=== PATIENT | female | born 1945 | race Caucasian/White ===

== ENCOUNTER 2017-02-04 04:02 | Inpatient (IN) | payer MEDICARE, OTHER ==
[~2017-02-04] VITALS: Ht 160 cm; Wt 99.8 kg
[2017-02-04] VITALS (8 sets, daily range): BP systolic 90–148; BP diastolic 60–93
[2017-02-04] MEDS ORDERED: Dicyclomine HCl 10mg/5ml oral soln ORAL ONE (04:15)
[2017-02-04 05:01] LABS: BASOPHILS % (AUTO) 1.2 % (0.0-2.0); EOSINOPHILS % (AUTO) 0.7 % (0.0-3.0); LYMPHOCYTES % (AUTO) 29.4 % (20.0-45.0); MEAN CORPUSCULAR HEMOGLOBIN 28.5 PG (27.0-31.0); MEAN CORPUSCULAR HGB CONC 32.9 G/DL (32.0-36.0); MEAN CORPUSCULAR VOLUME 86 FL (80-99); MEAN PLATELET VOLUME 7.5 FL (6.5-10.1); MONOCYTES % (AUTO) 4.8 % (1.0-10.0); PLATELET COUNT 238 K/UL (150-450); RED BLOOD COUNT 5.13 M/UL (4.20-5.40); RED CELL DISTRIBUTION WIDTH 12.2 % (11.6-14.8); WHITE BLOOD COUNT 9.8 K/UL (4.8-10.8)
[2017-02-04 05:17] LABS: ALBUMIN/GLOBULIN RATIO 1.5 (1.0-2.7); CALCIUM 9.8 mg/dL (8.6-10.2); CREATININE 1.3 mg/dL (0.5-0.9); GLOMERULAR FILTRATION RATE 40.6 mL/min (>60); POTASSIUM 3.8 mEQ/L (3.4-4.9); TROPONIN I < 0.30 ng/mL (<=0.30)
[2017-02-04 05:18] LABS: PROTHROMBIN TIME 10.7 SEC (9.30-11.50)
[2017-02-04] MEDS ORDERED: Aspirin Baby 81mg ORAL ONE (05:30)
[2017-02-04 06:29] LABS: APPEARANCE,URINE CLEAR; KETONES,URINE 3+ (NEGATIVE); LEUKOCYTE ESTERASE ,URINE 1+ (NEGATIVE); NITRITE,URINE NEGATIVE (NEGATIVE); PH,URINE 5 (4.5-8.0); PROTEIN,URINE NEGATIVE (NEGATIVE); UROBILINOGEN,URINE 1 MG/DL (0.0-1.0)
--- NOTE | 2017-02-04 06:48 | Emergency Room Report ---
History of Present Illness General Chief Complaint: General Complaint Source: Patient, EMS Present Illness HPI Patient is a 71-year-old female who presented after increased abdominal pain chest pain. The patient is brought in by EMS. She was noted to have have been staying at her apartment which appear to be markedly had disorganized and was having difficulty caring for herself. She was noted to have been calling for help and the neighbor called EMS. The patient was having difficulty transferring in her wheelchair. Patient prior history of diabetes as well as hypertension. She reportedly takes multiple medications but does not know the names of any of her medications. She reported having some chest pain which did not radiate. She also reported having some pain to her right leg. Which is worse with movement. Allergies: Coded Allergies: SULFA (SULFONAMIDE ANTIBIOTICS) (Verified Allergy, Unknown, 02/04/17) Patient History Past Medical History: see triage record Reviewed Nursing Documentation: PMH: Agreed, PSxH: Agreed Nursing Documentation-PMH Past Medical History: No History, Except For Hx Hypertension: Yes Hx Diabetes: Yes Review of Systems All Other Systems: negative except mentioned in HPI Physical Exam Vital Signs Date Time Temp Pulse Resp B/P Pulse Ox O2 Delivery O2 Flow Rate FiO2 02/04/17 03:54 97.9 93 16 125/91 99 Room Air Sp02 EP Interpretation: reviewed, normal General Appearance: normal inspection, well appearing, no apparent distress, alert, GCS 15 Head: atraumatic ENT: normal ENT inspection, hearing grossly normal, normal voice Neck: normal inspection, full range of motion, supple, no bony tend Respiratory: normal inspection, lungs clear, normal breath sounds, no respiratory distress, no retraction, no wheezing Cardiovascular #1: regular rate, rhythm, no edema Gastrointestinal: normal inspection, normal bowel sounds, non tender, soft, no guarding, no hernia Genitourinary: no CVA tenderness Musculoskeletal: normal inspection, back normal, normal range of motion Neurologic: normal inspection, alert, oriented x3, responsive, speech normal, motor weakness - lower extremities Psychiatric: normal inspection, mood/affect normal Skin: normal inspection, normal color, no rash Medical Decision Making Diagnostic Impression: Primary Impression: Chest pain Additional Impressions: Dehydration ACS (acute coronary syndrome) ER Course Patient presented for abdominal pain. Differential diagnoses included ischemic bowel, appendicitis, perforated viscus, abdominal aortic aneurysm, inferior myocardial infarction, viral gastroenteritis Because of complexity of patient's case laboratory testing and imaging studies were ordered. EKG interpreted by me showed normal sinus rhythm with a rate of 84 with a right bundle-branch block there are no acute ST or T wave changes noted. Patient was noted to have prolonged QTC 484. Patient was given Zyprexa for agitation. CT imaging of the abdomen pelvis read by radiology showed status post cholecystectomy without significant bile duct dilation diverticulosis granulomatous disease.Dr. Narinder Mckeon was contacted for inpatient management for further evaluation of chest pain. Last Vital Signs Date Time Temp Pulse Resp B/P Pulse Ox O2 Delivery O2 Flow Rate FiO2 02/04/17 05:17 76 14 138/77 97 Room Air 02/04/17 03:54 97.9 Status: unchanged Disposition: ADMITTED INPATIENT Condition: Stable Referrals: NON PHYSICIAN (PCP) Navi Friedman Feb 04, 2017 06:48
[2017-02-04 06:52] LABS: BACTERIA,URINE FEW /HPF; MUCUS,URINE FEW /LPF (NONE/OCC); RBC,URINE 0-2 /HPF (0 - 2); SQUAMOUS EPITHELIAL CELL,UR FEW /LPF (NONE/OCC)
[2017-02-04 09:33] LABS: TROPONIN I < 0.30 ng/mL (<=0.30)
--- NOTE | 2017-02-04 09:49 | Diagnostic Imaging Report ---
Clinical Indication: Right-sided pain Technique: No oral contrast utilized, per emergency room physician request IV administration nonionic contrast. Venous phase spiral acquisition obtained through the abdomen and pelvis. Multiplanar reconstructions were generated. Total dose length product 983 mGycm. CTDIvol(s) 17 mGy. Dose reduction achieved using automated exposure control Comparison: None Findings: There is a slight degree of image degradation due to respiratory motion artifact. What is probably a normal appendix is demonstrated. There are scattered colonic diverticula. No evidence of diverticulitis. Small bowel loops are mildly fluid-filled, nondistended. No free or loculated intraperitoneal air or fluid is evident. Distal esophagus, stomach, duodenum are unremarkable. There is a small midline upper abdominal ventral hernia which contain only fat The gallbladder is surgically absent. There is ectasia of the extrahepatic bile ducts, common bile duct measuring up to 10 mm diameter. No definite downstream obstructing lesion is evident. The, pancreas, spleen, adrenals, are unremarkable. There is equivocal very slight asymmetry to the bilateral nephrograms, right kidney questionably opacifying minimally less than the right. No retroperitoneal or mesenteric mass or adenopathy. No pelvic mass or adenopathy. The included lung bases demonstrate some dependent atelectatic changes and a calcified granuloma. The bones demonstrate degenerative spondylosis changes. Impression: Equivocal slight nephrographic asymmetry, of doubtful significance but if real could indicate right-sided pyelonephritis. Correlate with clinical findings No acute abnormality otherwise Diverticulosis. No evidence of diverticulitis. Surgically absent gallbladder. Mild extra hepatic biliary ductal ectasia, probably related to age and postcholecystectomy state. Correlation with liver function tests is recommended. Old granulomatous disease of the left lung base. Minimal left basilar atelectasis Incidental finding degenerative spondylosis, small upper abdominal midline ventral hernia containing only fat This agrees with the preliminary interpretation provided overnight by [facility] teleradiology service. The CT scanner at [facility] is accredited by the [employer] and the scans are performed using protocols designed to limit radiation exposure to as low as reasonably achievable to attain images of sufficient resolution adequate for diagnostic evaluation.
[2017-02-04] MEDS: Pantoprazole Inj IV SCH (10:09)
[2017-02-04] MEDS: Heparin 5000 units/ml inj SUBQ SCH ×2 (10:13→20:32)
[2017-02-04] MEDS: Morphine Sulfate 4mg/ml Inj IVP PRN ×2 (12:02→17:36)
--- NOTE | 2017-02-04 12:06 | History & Physical ---
History and Physical History & Physicial H&P dictated [id number] ANUPAM PETERSON M.D. Feb 04, 2017 12:06
[2017-02-04 13:13] LABS: THYROID STIMULATING HORMONE 0.979 uIU/mL (0.300-4.500)
--- NOTE | 2017-02-04 13:30 | Cardiology Report ---
APPROVED REPORT EKG Measurement Heart [id number] Normal sinus rhythm Right bundle branch block Abnormal ECG
--- NOTE | 2017-02-04 13:30 | Diagnostic Imaging Report ---
Indications: PAIN Technique: Two views of the right femur Comparison: None Findings: No acute fractures. No dislocations. There is a right knee prosthesis Impression: No acute bony trauma This agrees with the preliminary interpretation provided by the referring physician
[2017-02-04] MEDS: Morphine Sulfate 2mg/ml Inj IVP PRN (20:24)
--- NOTE | 2017-02-04 20:26 | Cardiology Progress Note ---
Assessment/Plan Assessment/Plan ekg unchanged since 2012 all trop neg cp seem to be reproducible on palpation of chest wall check echo repeat ekg adn trop if all remain neg will not pursuit further gramajo as inpt [id number] Objective Last 24 Hour Vital Signs Date Time Temp Pulse Resp B/P Pulse Ox O2 Delivery O2 Flow Rate FiO2 02/04/17 16:26 97.5 82 18 144/74 99 Room Air 02/04/17 16:00 89 02/04/17 12:00 97.4 75 18 117/64 97 Room Air 02/04/17 08:42 82 02/04/17 08:30 97.0 77 18 113/60 97 Room Air 02/04/17 07:49 82 16 118/75 100 Room Air 02/04/17 07:30 82 16 90/66 100 Room Air 02/04/17 06:44 97.2 84 19 147/69 98 02/04/17 05:17 76 14 138/77 97 Room Air 02/04/17 05:00 87 15 148/93 95 Room Air 02/04/17 03:54 97.9 93 16 125/91 99 Room Air Intake and Output 02/03/17 02/04/17 19:00 07:00 Intake Total 100 ml Output Total 250 ml Balance -150 ml Intake Oral 100 ml Output Urine Total 250 ml Laboratory Tests Test 02/04/17 04:40 02/04/17 06:10 02/04/17 09:00 02/04/17 12:30 White Blood Count 9.8 K/UL (4.8-10.8) Red Blood Count 5.13 M/UL (4.20-5.40) Hemoglobin 14.6 G/DL (12.0-16.0) Hematocrit 44.3 % (37.0-47.0) Mean Corpuscular Volume 86 FL (80-99) Mean Corpuscular Hemoglobin 28.5 PG (27.0-31.0) Mean Corpuscular Hemoglobin Concent 32.9 G/DL (32.0-36.0) Red Cell Distribution Width 12.2 % (11.6-14.8) Platelet Count 238 K/UL (150-450) Mean Platelet Volume 7.5 FL (6.5-10.1) Neutrophils (%) (Auto) 64.0 % (45.0-75.0) Lymphocytes (%) (Auto) 29.4 % (20.0-45.0) Monocytes (%) (Auto) 4.8 % (1.0-10.0) Eosinophils (%) (Auto) 0.7 % (0.0-3.0) Basophils (%) (Auto) 1.2 % (0.0-2.0) Prothrombin Time 10.7 SEC (9.30-11.50) Prothromb Time International Ratio 1.0 (0.9-1.1) Activated Partial Thromboplast Time 24 SEC (23-33) Sodium Level 138 mEQ/L (135-145) Potassium Level 3.8 mEQ/L (3.4-4.9) Chloride Level 96 mEQ/L (98-107) L Carbon Dioxide Level 26 mEQ/L (20-30) Anion Gap 16 (5-15) H Blood Urea Nitrogen 23 mg/dL (7-23) Creatinine 1.3 mg/dL (0.5-0.9) H Estimat Glomerular Filtration Rate 40.6 mL/min (>60) Glucose Level 162 mg/dL (74-106) H Calcium Level 9.8 mg/dL (8.6-10.2) Total Bilirubin 0.9 mg/dL (0.0-1.2) Aspartate Amino Transf (AST/SGOT) 16 U/L (5-40) Alanine Aminotransferase (ALT/SGPT) 19 U/L (3-33) Alkaline Phosphatase 77 U/L (35-104) Troponin I < 0.30 ng/mL (<=0.30) < 0.30 ng/mL (<=0.30) Total Protein 7.0 g/dL (6.6-8.7) Albumin 4.3 g/dL (3.5-5.2) Globulin 2.7 g/dL Albumin/Globulin Ratio 1.5 (1.0-2.7) Urine Color Yellow Urine Appearance Clear Urine pH 5 (4.5-8.0) Urine Specific North 1.015 (1.005-1.035) Urine Protein Negative (NEGATIVE) Urine Glucose (UA) Negative (NEGATIVE) Urine Ketones 3+ (NEGATIVE) H Urine Occult Blood Negative (NEGATIVE) Urine Nitrite Negative (NEGATIVE) Urine Bilirubin Negative (NEGATIVE) Urine Urobilinogen 1 MG/DL (0.0-1.0) H Urine Leukocyte Esterase 1+ (NEGATIVE) H Urine RBC 0-2 /HPF (0 - 2) Urine WBC 2-4 /HPF (0 - 2) Urine Squamous Epithelial Cells Few /LPF (NONE/OCC) Urine Bacteria Few /HPF (NONE) Urine Mucus Few /LPF (NONE/OCC) H Vitamin B12 Level 539 pg/mL (211-946) Thyroid Stimulating Hormone (TSH) 0.979 uIU/mL (0.300-4.500) Folate Pending Rapid Plasma Reagin Pending NICOLE PETE Feb 04, 2017 20:26
[2017-02-04] MEDS: NovoLOG Insulin Flexpen SUBQ SCH (21:10)
--- NOTE | 2017-02-04 22:01 | History and Physical Report ---
DATE OF ADMISSION: 02/04/2017 HISTORY OF PRESENT ILLNESS: This is a 71-year-old female, who is homeless and presents to the hospital for left-sided chest pain. She has come to the emergency room and informed that she was inside her apartment a few steps and fell by holding onto the wheelchair. She reports left-sided chest pain at this time. She has a history of hypertension, diabetes, chronic pain, and angina. She denies any shortness of breath. She states that her chest pain radiates to her left neck and is sharp in nature. She denies any alleviating or aggravating factors. She had abdominal pain yesterday. She denies any nausea or vomiting. The patient is very disorganized and confused. She does not remember many details. She does not know the name of the medications that she is taking. PAST MEDICAL HISTORY: Includes angina, diabetes, hypertension, and chronic pain. PAST SURGICAL HISTORY: None. MEDICATIONS: Reviewed in [email or web address]. ALLERGIES: Sulfa. REVIEW OF SYSTEMS: A 12-point of review of systems is unobtainable because of the patient's mental status. PHYSICAL EXAMINATION: VITAL SIGNS: Temperature 97.9 degrees, pulse is 93, respiratory rate is 15, blood pressure 125/91, and O2 saturation is 99% on room air. GENERAL: No acute distress. The patient is alert, awake, and oriented times person only. HEENT: Normocephalic/atraumatic. NECK: Supple. No JVD. LUNGS: Clear to auscultation bilaterally. No crackles, rhonchi, or rales. CARDIOVASCULAR: Regular rate and rhythm. Normal S1 and S2. ABDOMEN: Soft, nontender, and nondistended. EXTREMITIES: No clubbing, cyanosis, or edema. SKIN: Normal inspection. No rashes. NEURO: The patient is awake and alert to person. PSYCH: The patient is very anxious and confused. DIAGNOSTIC DATA: EKG shows right bundle-branch block. LABORATORY DATA: CBC, white count of 9.8, hemoglobin 14.6, and platelet count 238,000. BMP, sodium 138, potassium 3.8, chloride 96, CO2 26, BUN 23, and creatinine 1.3. Troponin is less than 0.[address] abdomen and pelvis shows diverticulosis, surgically absent gallbladder, old granulomatous disease of left lung base, degenerative spondylosis, and abdominal midline ventral hernia containing fat. ASSESSMENT: 1. Left-sided chest pain. 2. History of diabetes. 3. Hypertension. 4. The patient is confused concerning for dementia. PLAN: 1. Can transfer her to telemetry. 2. Cardiac monitoring. 3. Cardiology consult with Dr. Escobar 4. Aspirin and pravastatin. 5. PPI. 6. Metabolic workup for confusion including a TSH, RPR, and calcium. 7. rice farmworker consult. 8. PT evaluation. 9. I am concerned that the patient is not safe at home given her significant weakness. 10. DVT prophylaxis with heparin. Narinder Mckeon MD DR: GRACIE JOB#: [id number] CC:
[2017-02-05] VITALS: BP 140/80
[2017-02-05] MEDS: Morphine Sulfate 2mg/ml Inj IVP PRN ×2 (00:59→09:37)
[2017-02-05 04:00] VITALS: BP 142/76
--- NOTE | 2017-02-05 06:15 | Consultation ---
DATE OF CONSULTATION: 02/04/2017 CARDIOLOGY CONSULTATION REFERRING PHYSICIAN: Narinder Mckeon M.D. REASON FOR REFERRAL: Chest pain. HISTORY OF PRESENT ILLNESS: This is an elderly female, who is rather a poor historian. She is 71 years old and she has several medical problems that the patient's reason for admission is rather vague. She tells me that the she felt anxious and she was throwing things out of her apartment and was trying to get out and she was unable to get a hold of her daughter. She was trying to cut down the lock and eventual. Nicolas Escobar M.D. DR: JOSEPH JOB#: [id number] CC:
[2017-02-05] MEDS: NovoLOG Insulin Flexpen SUBQ SCH ×5 (06:37→20:23)
[2017-02-05 07:49] LABS: BASOPHILS % (AUTO) 1.6 % (0.0-2.0); LYMPHOCYTES % (AUTO) 39.4 % (20.0-45.0); MEAN CORPUSCULAR HEMOGLOBIN 29.1 PG (27.0-31.0); MEAN CORPUSCULAR HGB CONC 33.2 G/DL (32.0-36.0); MEAN CORPUSCULAR VOLUME 88 FL (80-99); MEAN PLATELET VOLUME 7.8 FL (6.5-10.1); MONOCYTES % (AUTO) 4.9 % (1.0-10.0); NEUTROPHILS % (AUTO) 52.1 % (45.0-75.0); PLATELET COUNT 222 K/UL (150-450); RED BLOOD COUNT 5.11 M/UL (4.20-5.40); RED CELL DISTRIBUTION WIDTH 12.5 % (11.6-14.8)
[2017-02-05 07:51] LABS: ANION GAP 13 (5-15); CARBON DIOXIDE 29 mEQ/L (20-30); CHLORIDE 99 mEQ/L (98-107); CREATININE 0.9 mg/dL (0.5-0.9); GLOMERULAR FILTRATION RATE > 60 mL/min (>60); HEMOLYSIS 5; POTASSIUM 3.9 mEQ/L (3.4-4.9); SODIUM 141 mEQ/L (135-145)
[2017-02-05 08:00] VITALS: BP 118/74
[2017-02-05 08:08] LABS: TROPONIN I < 0.30 ng/mL (<=0.30)
--- NOTE | 2017-02-05 08:15 | Consultation ---
DATE OF CONSULTATION: 02/04/2017 CARDIOLOGY CONSULTATION CONSULTING PHYSICIAN: Nicolas Escobar M.D. REFERRING PHYSICIAN: Narinder Mckeon M.D. REASON FOR REFERRAL: Possible chest pain. HISTORY OF PRESENT ILLNESS: This is a 71-year-old female who is usually followed by Dr. Shubham Fernandez. The patient has a very convoluted history and very difficult to obtain. Apparently, in the complex where she was living, she was trying to get out. She was having several symptoms and very difficult to ascertain exactly the nature of the symptoms. She was trying to jump out or try to break down the lock and going to step out of the apartment. She says nevertheless she had somebody to call the paramedics. and the patient was transferred to the emergency room at [facility]. There have been some episodes of chest pain, which she says she has had off and on for 22 years and it is difficult for her to describe her pain, but seems to be sharp in nature, but lasts anywhere between a few seconds to few minutes. She does not seem to be have any relieving or exacerbating factors being noted or documented by the patient. She states Dr. Fernandez has been aware of these. She has shortness of breath. She has palpitations. She has dizziness on standing. She has shortness of breath on laying down and shortness of breath on activity. 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 ALLERGIES: She is allergic to sulfa. SOCIAL HISTORY: She does not smoke. Does not drink alcohol beverages. She lives in an apartment complex. Her daughter apparently assists in her care, although she seems to have been moved to [place]. REVIEW OF SYSTEMS: HEENT: Boggy turbinates. Gastrointestinal: She does not eat she says. She does not cook. She is constipated. She does not eat enough to cook. There is no bloody or black stools, but she has improved. Genitourinary: No burning on urination at this time, but she has had that before. Pulmonary: Occasional cough. Constitutional: Occasional fevers, chills, and night sweats. Neurologic: Negative. PHYSICAL EXAMINATION: GENERAL: Shows to be anxious appearing, middle-aged female, in no respiratory distress. NECK: Supple. No jugular venous distention. LUNGS: Clear to auscultation and percussion. CARDIAC: S1 is normal. S2 is normal. Regular rate and rhythm. No heaves, thrills, or gallops noted. ABDOMEN: Soft and obese. Positive bowel sounds. EXTREMITIES: There is no clubbing, cyanosis, or edema. NEUROLOGIC: She is awake, alert, responsive, and in no apparent respiratory distress. LABORATORY DATA: White count of 9.2, hemoglobin 14.2, and platelets 238,000. Sodium is 130, potassium 3.8, chloride 96, bicarbonate 26, BUN 22, creatinine 1.2, and glucose of 162. Two sets of cardiac enzymes are negative. B12 of 539. TSH of 0.979. INR is 1.2 and PTT of 26. Urinalysis is fairly unremarkable. IMAGING STUDIES: CT of the abdomen shows normal appendix actually improved with slight nephrographic asymmetry of doubtful significant diverticulosis, surgically absent gallbladder, intrahepatic biliary ductal ectasia, probably related to age and post cholecystectomy, old granulomatous disease of the left lung, minimal left atelectasis, incident finding of spondylosis and the patient's electrocardiogram shows right bundle-branch conduction defect. No significant ST-T wave abnormalities. Compared to prior EKG back in 2013 at [facility] are fairly unremarkable. ASSESSMENT: 1. Atypical chest pain. 2. Diabetes. 3. Hyperlipidemia. 4. Hypertension. 5. Anxiety. PLAN: Dr. Mckeon, this patient was seen in cardiac consultation. There are no intracardiac abnormalities on this EKG. I am not even sure not sure if she actually had some chest pain. Her chest wall is tender to palpation and reproduces the patient's pain. It is likely that this may be musculoskeletal if the pain was present either. The patient should undergo echocardiography if the echocardiogram is unremarkable and cardiac enzymes and repeat EKGs are unremarkable I may not pursue any further. Nicolas Escobar M.D. DR: JEAN MARIE JOB#: [id number] CC:
[2017-02-05] MEDS: Pantoprazole Inj IV SCH (08:51)
[2017-02-05] MEDS: Heparin 5000 units/ml inj SUBQ SCH ×2 (08:52→20:22)
[2017-02-05 12:00] VITALS: BP 144/84
--- NOTE | 2017-02-05 13:23 | Internal Med Progress Note ---
Subjective Physician Name Narinder Peterson Attending Physician Narinder Peterson M.D. Current Medications Medications (Trade) Dose Ordered Sig/[place] Route PRN Reason Start Time Stop Time Status Last Admin Dose Admin Acetaminophen (Tylenol) 650 mg Q4H PRN ORAL Mild Pain (Pain Scale 1-3) 02/04/17 07:15 03/06/17 07:14 Dextrose STAT PRN IV Hypoglycemia 02/04/17 07:15 03/06/17 07:14 Heparin Sodium (Porcine) (Heparin 5000 units/ml) 5,000 units EVERY 12 HOURS SUBQ 02/04/17 09:00 03/06/17 08:59 02/05/17 08:52 Insulin Aspart (NovoLOG) BEFORE MEALS AND HS SUBQ 02/04/17 21:00 03/06/17 20:59 02/05/17 06:37 Morphine Sulfate (Morphine Sulfate) 2 mg Q4H PRN IVP Moderate Pain (Pain Scale 4-6) 02/04/17 07:15 02/11/17 07:14 02/05/17 09:37 Morphine Sulfate (Morphine Sulfate) 4 mg Q4H PRN IVP Severe Pain (Pain Scale 7-10) 02/04/17 07:15 02/11/17 07:14 02/04/17 17:36 Ondansetron HCl (Zofran) 4 mg Q6H PRN IVP Nausea & Vomiting 02/04/17 07:15 03/06/17 07:14 Pantoprazole (Protonix) 40 mg DAILY IV 02/04/17 09:00 03/06/17 08:59 02/05/17 08:51 Sodium Chloride (0.45% NS 1000ml) 1,000 ml @ 75 mls/hr [id number] IV 02/04/17 09:00 03/06/17 08:59 02/05/17 11:54 Allergies: Coded Allergies: SULFA (SULFONAMIDE ANTIBIOTICS) (Verified Allergy, Unknown, 02/04/17) All Systems: reviewed and negative except above - chest pain , abd pain Objective Last Vital Signs Date Time Temp Pulse Resp B/P Pulse Ox O2 Delivery O2 Flow Rate FiO2 02/05/17 12:00 97.1 87 19 144/84 94 Room Air Laboratory Tests Test 02/05/17 07:20 White Blood Count 8.0 K/UL (4.8-10.8) Red Blood Count 5.11 M/UL (4.20-5.40) Hemoglobin 14.9 G/DL (12.0-16.0) Hematocrit 44.8 % (37.0-47.0) Mean Corpuscular Volume 88 FL (80-99) Mean Corpuscular Hemoglobin 29.1 PG (27.0-31.0) Mean Corpuscular Hemoglobin Concent 33.2 G/DL (32.0-36.0) Red Cell Distribution Width 12.5 % (11.6-14.8) Platelet Count 222 K/UL (150-450) Mean Platelet Volume 7.8 FL (6.5-10.1) Neutrophils (%) (Auto) 52.1 % (45.0-75.0) Lymphocytes (%) (Auto) 39.4 % (20.0-45.0) Monocytes (%) (Auto) 4.9 % (1.0-10.0) Eosinophils (%) (Auto) 2.0 % (0.0-3.0) Basophils (%) (Auto) 1.6 % (0.0-2.0) Sodium Level 141 mEQ/L (135-145) Potassium Level 3.9 mEQ/L (3.4-4.9) Chloride Level 99 mEQ/L (98-107) Carbon Dioxide Level 29 mEQ/L (20-30) Anion Gap 13 (5-15) Blood Urea Nitrogen 20 mg/dL (7-23) Creatinine 0.9 mg/dL (0.5-0.9) Estimat Glomerular Filtration Rate > 60 mL/min (>60) Glucose Level 201 mg/dL (74-106) H Calcium Level 10.0 mg/dL (8.6-10.2) Troponin I < 0.30 ng/mL (<=0.30) Intake and Output 02/04/17 02/05/17 19:00 07:00 Intake Total 120 ml 925 ml Output Total 150 ml 200 ml Balance -30 ml 725 ml Intake Oral 120 ml 100 ml IV Total 825 ml Output Urine Total 150 ml 200 ml Objective GENERAL: No acute distress. The patient is alert, awake, and oriented times person only. HEENT: Normocephalic/atraumatic. NECK: Supple. No JVD. LUNGS: Clear to auscultation bilaterally. No crackles, rhonchi, or rales. CARDIOVASCULAR: Regular rate and rhythm. Normal S1 and S2. ABDOMEN: Soft, nontender, and nondistended. EXTREMITIES: No clubbing, cyanosis, or edema. SKIN: Normal inspection. No rashes. NEURO: The patient is awake and alert to person. PSYCH: The patient is very anxious Assessment/Plan Assessment/Plan ASSESSMENT: 1. Left-sided chest pain. 2. History of diabetes. 3. Hypertension. 4. The patient is confused concerning for dementia. PLAN: 1. tele 2. Cardiac monitoring. 3. Cardiology consult with Dr. Escobar 4. Aspirin and pravastatin. 5. PPI. 6. GI consult because of abd pain 7. domestic laundry worker consult. 8. PT evaluation. 10. DVT prophylaxis with heparin. NARINDER PETERSON M.D. Feb 05, 2017 13:22
[2017-02-05 16:00] VITALS: BP 157/82
--- NOTE | 2017-02-05 16:04 | GI Initial Consult Note ---
History of Present Illness General Date patient seen: Feb 05, 2017 Time patient seen: 13:00 Reason for Hospitalization: General Complaint Referring physician: ANUPAM PETERSON Reason for Consultation: ABDOMINAL PAIN Present Illness HPI Patient is a 71-year-old female who presented after increased abdominal pain chest pain. The patient is brought in by EMS. She was noted to have have been staying at her apartment which appear to be markedly had disorganized and was having difficulty caring for herself. She was noted to have been calling for help and the neighbor called EMS. The patient was having difficulty transferring in her wheelchair. Patient prior history of diabetes as well as hypertension. She reportedly takes multiple medications but does not know the names of any of her medications. She reported having some chest pain which did not radiate. She also reported having some pain to her right leg. Which is worse with movement. GI Consult. HPI noted above. GI consulted for abdominal pain. Pt seen on floor, awake A&Ox4 NAD with poor memory. Her abdominal pain has currently resolved. Epigastric tender to touch. States she is currently constipated, last BM x 2 days. Primary sees her physician at [facility]. Cannot recall last endoscopic procedure. Allergies: Coded Allergies: SULFA (SULFONAMIDE ANTIBIOTICS) (Verified Allergy, Unknown, 02/04/17) Patient History History Provided By: Patient, Medical Record [facility] Narrative Past Medical History: No History, Except For Hx Hypertension: Yes Hx Diabetes: Yes Social History: Denies: alcohol use, drug use, other, smoking Review of Systems All Other Systems: negative except mentioned in HPI Physical Exam Vital Signs Date Time Temp Pulse Resp B/P Pulse Ox O2 Delivery O2 Flow Rate FiO2 02/04/17 03:54 97.9 93 16 125/91 99 Room Air Sp02 EP Interpretation: reviewed Labs Laboratory Tests Test 02/05/17 07:20 White Blood Count 8.0 K/UL (4.8-10.8) Red Blood Count 5.11 M/UL (4.20-5.40) Hemoglobin 14.9 G/DL (12.0-16.0) Hematocrit 44.8 % (37.0-47.0) Mean Corpuscular Volume 88 FL (80-99) Mean Corpuscular Hemoglobin 29.1 PG (27.0-31.0) Mean Corpuscular Hemoglobin Concent 33.2 G/DL (32.0-36.0) Red Cell Distribution Width 12.5 % (11.6-14.8) Platelet Count 222 K/UL (150-450) Mean Platelet Volume 7.8 FL (6.5-10.1) Neutrophils (%) (Auto) 52.1 % (45.0-75.0) Lymphocytes (%) (Auto) 39.4 % (20.0-45.0) Monocytes (%) (Auto) 4.9 % (1.0-10.0) Eosinophils (%) (Auto) 2.0 % (0.0-3.0) Basophils (%) (Auto) 1.6 % (0.0-2.0) Sodium Level 141 mEQ/L (135-145) Potassium Level 3.9 mEQ/L (3.4-4.9) Chloride Level 99 mEQ/L (98-107) Carbon Dioxide Level 29 mEQ/L (20-30) Anion Gap 13 (5-15) Blood Urea Nitrogen 20 mg/dL (7-23) Creatinine 0.9 mg/dL (0.5-0.9) Estimat Glomerular Filtration Rate > 60 mL/min (>60) Glucose Level 201 mg/dL (74-106) H Calcium Level 10.0 mg/dL (8.6-10.2) Troponin I < 0.30 ng/mL (<=0.30) General Appearance: well appearing, no apparent distress, alert Head: normocephalic EENT: PERRL/EOMI, normal ENT inspection Neck: full range of motion, supple Respiratory: normal breath sounds, no respiratory distress Cardiovascular: normal rate Gastrointestinal: normal inspection, non tender, soft Rectal: deferred Genitourinary: no CVA tenderness Musculoskeletal: back normal Neurologic: normal inspection, alert, oriented x3, responsive Psychiatric: normal inspection, judgement/insight normal, memory normal Skin: normal inspection, normal color, no rash, warm/dry Lymphatic: normal inspection, no adenopathy Current Medications Current Medications Medications (Trade) Dose Ordered Sig/[place] Route PRN Reason Start Time Stop Time Status Last Admin Dose Admin Acetaminophen (Tylenol) 650 mg Q4H PRN ORAL Mild Pain (Pain Scale 1-3) 02/04/17 07:15 03/06/17 07:14 Dextrose STAT PRN IV Hypoglycemia 02/04/17 07:15 03/06/17 07:14 Heparin Sodium (Porcine) (Heparin 5000 units/ml) 5,000 units EVERY 12 HOURS SUBQ 02/04/17 09:00 03/06/17 08:59 02/05/17 08:52 Insulin Aspart (NovoLOG) BEFORE MEALS AND HS SUBQ 02/04/17 21:00 03/06/17 20:59 02/05/17 06:37 Morphine Sulfate (Morphine Sulfate) 2 mg Q4H PRN IVP Moderate Pain (Pain Scale 4-6) 02/04/17 07:15 02/11/17 07:14 02/05/17 09:37 Morphine Sulfate (Morphine Sulfate) 4 mg Q4H PRN IVP Severe Pain (Pain Scale 7-10) 02/04/17 07:15 02/11/17 07:14 02/04/17 17:36 Ondansetron HCl (Zofran) 4 mg Q6H PRN IVP Nausea & Vomiting 02/04/17 07:15 03/06/17 07:14 Pantoprazole (Protonix) 40 mg DAILY IV 02/04/17 09:00 03/06/17 08:59 02/05/17 08:51 Sodium Chloride (0.45% NS 1000ml) 1,000 ml @ 75 mls/hr [id number] IV 02/04/17 09:00 03/06/17 08:59 02/05/17 11:54 GI: Plan Problems: (1) Abdominal pain (2) GERD (gastroesophageal reflux disease) (3) Dehydration (4) Constipation Plan APCT reviewed >> overall unremarkable, hx of cholecystectomy. troponin negative symptomatic treatment pain mgmt prn bowel regime ppi DM control recommend outpatient colonoscopy screening dc planning in am Discussed with Dr. Yeager. Thank you for referring this patient, we will follow. Shaye Montanez N.P. Feb 05, 2017 16:04
[2017-02-05] MEDS: Docusate 100mg cap ORAL SCH (17:55)
--- NOTE | 2017-02-05 18:41 | Cardiology Progress Note ---
Assessment/Plan Assessment/Plan 1. Atypical chest pain. 2. Diabetes. 3. Hyperlipidemia. 4. Hypertension. 5. Anxiety. ekg remains unchanged all trop neg cp seem to be reproducible on palpation of chest wall echo showed good lv function will not prusuit further at this time to fu with pmd as outpt [id number] Subjective Cardiovascular: Denies: chest pain, lightheadedness Respiratory: Denies: shortness of breath Gastrointestinal/Abdominal: Denies: abdominal pain Genitourinary: Denies: burning Objective Last 24 Hour Vital Signs Date Time Temp Pulse Resp B/P Pulse Ox O2 Delivery O2 Flow Rate FiO2 02/05/17 16:00 98.9 104 19 157/82 97 Room Air 02/05/17 16:00 106 02/05/17 12:00 97.1 87 19 144/84 94 Room Air 02/05/17 08:00 80 02/05/17 08:00 98.5 73 18 118/74 Room Air 02/05/17 04:00 98.0 86 18 142/76 97 Room Air 02/05/17 04:00 100 02/05/17 02:19 98.2 02/05/17 00:00 98.2 85 16 140/80 98 Room Air 02/05/17 00:00 97 02/04/17 20:00 96 02/04/17 20:00 98.2 93 18 146/81 98 Room Air General Appearance: alert Neck: supple Cardiovascular: normal rate, regular rhythm Respiratory/Chest: lungs clear, normal breath sounds Abdomen: normal bowel sounds, non tender, soft Extremities: no swelling Intake and Output 02/04/17 02/05/17 19:00 07:00 Intake Total 120 ml 925 ml Output Total 150 ml 200 ml Balance -30 ml 725 ml Intake Oral 120 ml 100 ml IV Total 825 ml Output Urine Total 150 ml 200 ml Laboratory Tests Test 02/05/17 07:20 White Blood Count 8.0 K/UL (4.8-10.8) Red Blood Count 5.11 M/UL (4.20-5.40) Hemoglobin 14.9 G/DL (12.0-16.0) Hematocrit 44.8 % (37.0-47.0) Mean Corpuscular Volume 88 FL (80-99) Mean Corpuscular Hemoglobin 29.1 PG (27.0-31.0) Mean Corpuscular Hemoglobin Concent 33.2 G/DL (32.0-36.0) Red Cell Distribution Width 12.5 % (11.6-14.8) Platelet Count 222 K/UL (150-450) Mean Platelet Volume 7.8 FL (6.5-10.1) Neutrophils (%) (Auto) 52.1 % (45.0-75.0) Lymphocytes (%) (Auto) 39.4 % (20.0-45.0) Monocytes (%) (Auto) 4.9 % (1.0-10.0) Eosinophils (%) (Auto) 2.0 % (0.0-3.0) Basophils (%) (Auto) 1.6 % (0.0-2.0) Sodium Level 141 mEQ/L (135-145) Potassium Level 3.9 mEQ/L (3.4-4.9) Chloride Level 99 mEQ/L (98-107) Carbon Dioxide Level 29 mEQ/L (20-30) Anion Gap 13 (5-15) Blood Urea Nitrogen 20 mg/dL (7-23) Creatinine 0.9 mg/dL (0.5-0.9) Estimat Glomerular Filtration Rate > 60 mL/min (>60) Glucose Level 201 mg/dL (74-106) H Calcium Level 10.0 mg/dL (8.6-10.2) Troponin I < 0.30 ng/mL (<=0.30) NICOLE PETE Feb 05, 2017 18:41
[2017-02-05 20:00] VITALS: BP 132/80
[2017-02-05] MEDS ORDERED: Miralax 17gm pkt ORAL SCH (21:00)
[2017-02-06] VITALS: BP 132/52
[2017-02-06 04:00] VITALS: BP 148/86
[2017-02-06] MEDS: NovoLOG Insulin Flexpen SUBQ SCH ×2 (06:00→11:52)
[2017-02-06 08:05] VITALS: BP 129/89
[2017-02-06] MEDS: Docusate 100mg cap ORAL SCH (09:17)
[2017-02-06] MEDS: Heparin 5000 units/ml inj SUBQ SCH (09:18)
--- NOTE | 2017-02-06 10:33 | Discharge Summary ---
Discharge Summary Hospital Course Date of Admission Feb 04, 2017 at 06:00 Date of Discharge Admitting Diagnosis chest pain, acute coronary syndrome HPI Jesi Lewis is a 71 year old female who was admitted on Feb 04, 2017 at 06: 00 for Chest Pain, Acute Coronary Syndrome d/c summary dictated [id number] Discharge Condition Upon Discharge: stable Discharge Disposition Patient was discharged to HOME Discharge Diagnoses: ANUPAM PETERSON M.D. Feb 06, 2017 10:33
--- NOTE | 2017-02-06 10:38 | Discharge Instructions ---
Discharge Instructions Discharge Instructions Follow up with: PCP in 1wk Call MD/Return to Hospital if: recurrent chest pain Diet: diabetic calorie control, regular Resume Normal Activity?: Yes Activity: resume normal activities For Congestive Heart Failure Reminder Report to your physician any weight gain of 5 pounds or more in one week. ANUPAM PETERSON M.D. Feb 06, 2017 10:38
[2017-02-06 11:29] VITALS: BP 133/86
--- NOTE | 2017-02-06 12:18 | GI Progress Note ---
Assessment/Plan Problems: (1) Constipation ICD Codes: K59.00 - Constipation, unspecified SNOMED: 88617301 (2) Abdominal pain ICD Codes: R10.9 - Unspecified abdominal pain SNOMED: 87557908 (3) GERD (gastroesophageal reflux disease) ICD Codes: K21.9 - Gastro-esophageal reflux disease without esophagitis SNOMED: 466922413 (4) Dehydration ICD Codes: E86.0 - Dehydration SNOMED: 98907637 Status: stable Status Narrative Discussed with Dr. Yeager. Assessment/Plan APCT reviewed >> overall unremarkable, hx of cholecystectomy. troponin negative ok for DC per GI standpoint symptomatic treatment pain mgmt prn bowel regime ppi DM control outpatient colonoscopy screening Subjective Gastrointestinal/Abdominal: Reports: no symptoms Objective Last 24 Hour Vital Signs Date Time Temp Pulse Resp B/P Pulse Ox O2 Delivery O2 Flow Rate FiO2 02/06/17 11:29 96.9 104 18 133/86 99 Room Air 02/06/17 08:05 97.1 112 18 129/89 97 Room Air 02/06/17 04:00 97.7 93 20 148/86 99 Room Air 02/06/17 04:00 102 02/06/17 00:00 97.7 84 20 132/52 97 Room Air 02/06/17 00:00 82 02/05/17 20:00 97.7 91 18 132/80 97 Room Air 02/05/17 20:00 102 02/05/17 16:00 98.9 104 19 157/82 97 Room Air 02/05/17 16:00 106 Intake and Output 02/05/17 02/06/17 19:00 07:00 Intake Total 700 ml Output Total 500 ml Balance 700 ml -500 ml IV Total 700 ml Output Urine Total 500 ml # Voids 3 Height (Feet): 5 Height (Inches): 3.00 Weight (Pounds): 220 General Appearance: no apparent distress, alert Cardiovascular: normal rate Respiratory/Chest: normal breath sounds, no respiratory distress Abdominal Exam: normal bowel sounds, non tender, soft Shaye Montanez N.PPérez Feb 06, 2017 12:18
[2017-02-06 15:20] VITALS: BP 140/89
[2017-02-06] MEDS ORDERED: PANTOPRAZOLE SO40 MG ORAL (15:41)
[2017-02-06] MEDS ORDERED: METFORMIN HCL500 M1 ORAL (15:43)
--- NOTE | 2017-02-07 04:15 | Discharge Summary ---
DATE OF ADMISSION: 02/04/2017 DATE OF DISCHARGE: 02/06/2017 REASON FOR ADMISSION: Chest pain. PROCEDURES DONE HERE: None significant. FINDINGS: None. BRIEF HOSPITAL COURSE AND SUMMARY: This is a pleasant 71-year-old female with history of diabetes and hypertension, who presents to the hospital with chest pain. She was seen by Cardiology and had an echo that showed normal ejection fraction. She had a negative troponins and EKGs remained unchanged. She was also seen by GI and started on PPI for possible gastrointestinal manifestations of chest pain. She is no longer having chest pain, is stable for discharge. DISCHARGE CONDITION: Stable. DISCHARGE INSTRUCTIONS: The patient to follow up with PCP. The patient to return hospital for recurrent chest pain. The patient to ambulate as tolerated. The patient to be on a diabetic diet. DISCHARGE DIAGNOSES: 1. Atypical chest pain. 2. Diabetes. 3. Hypertension. 4. Possible dementia. 5. Gastroesophageal reflux disease. FOLLOWUP: The patient is to follow up with Dr. Yeager for outpatient colonoscopy. Narinder Mckeon MD DR: SIMON JOB#: [id number] CC:
== END 2017-02-06 15:55 | disposition home or self-care (01) | DRG 313 ==
LOC: EDBD 04:02 → EMR 05:13 → 2W 06:00 → EDBEDREQ 06:35 → 2E 16:30
DX: R07.89 Other chest pain (principal); E11.40 Type 2 diabetes mellitus with diabetic neuropathy, unspecified; F03.90 Unspecified dementia, unspecified severity, without behavioral disturbance, psychotic disturbance, mood disturbance, and anxiety; E78.5 Hyperlipidemia, unspecified; I10 Essential (primary) hypertension; F41.9 Anxiety disorder, unspecified; I45.10 Unspecified right bundle-branch block; K21.9 Gastro-esophageal reflux disease without esophagitis; E86.0 Dehydration; G89.29 Other chronic pain; K59.00 Constipation, unspecified; Z59.0 Homelessness; Z96.651 Presence of right artificial knee joint; Z79.891 Long term (current) use of opiate analgesic; Z88.2 Allergy status to sulfonamides
CPT/HCPCS: 36415; 74177; 80048; 80053; 81003; 82607; 82746; 82962; 84443; 84484; 85025; 85610; 85730; 86592; 86850; 86900; 86901; 93005; 93306; J1815

== ENCOUNTER 2017-04-10 20:42 | Emergency (ER) | payer MEDICARE, OTHER ==
[~2017-04-10] VITALS: Ht 162.6 cm; Wt 81.6 kg
[~2017-04-10 20:42] MED LIST: METFORMIN HCL500 M1 ORAL; PANTOPRAZOLE SO40 MG ORAL
[2017-04-10] MEDS ORDERED: Metoclopramide 10mg/2ml Inj IVP ONE (21:00)
[2017-04-10] MEDS ORDERED: Ketorolac 30mg Inj IV ONE (21:00)
[2017-04-10] MEDS ORDERED: DiphenhydrAMINE 50mg/ml Inj IVP ONE (21:00)
--- NOTE | 2017-04-10 21:40 | Emergency Room Report ---
History of Present Illness General Chief Complaint: Pain Source: Patient, EMS Present Illness HPI The patient presents with total body pain. She is on methadone 20 mg 4 times a day. She's been taking medicine hasn't helped her pain. She has a history of osteoarthritis. Denies any fevers. There's been no nausea vomiting or diarrhea. She also denies chest pain. She has been unable to see her doctor. Denies dysuria. She also has bilateral hip pain and wants to know if the pain is due to this or her back. No recent trauma. She had a chronic pain MD. She states they were trying to wean her off of all narcotics. However, she had good results with Lyrica, but they have not continued to prescribe this medicine. No increased weakness, incontinence, fevers, blood thinners, oncologic problems. She is depressed about the pain but not suicidal (she states it makes her crazy). She does also take celebrex. She is diabetic and takes metformin and 70/30 insulin. Allergies: Coded Allergies: SULFA (SULFONAMIDE ANTIBIOTICS) (Verified Allergy, Unknown, 02/04/17) Patient History Past Medical History: see triage record Social History: Denies: smoking Social History Narrative home Reviewed Nursing Documentation: PMH: Agreed, PSxH: Agreed Nursing Documentation-PMH Hx Hypertension: Yes Hx Diabetes: Yes Hx Cancer: No Hx Gastrointestinal Problems: No Review of Systems All Other Systems: negative except mentioned in HPI Physical Exam Vital Signs Date Time Temp Pulse Resp B/P (MAP) Pulse Ox O2 Delivery O2 Flow Rate FiO2 04/10/17 20:38 98.1 90 16 152/85 99 Room Air Sp02 EP Interpretation: reviewed, normal General Appearance: well appearing, no apparent distress, GCS 15, obese Head: normocephalic Eyes: bilateral eye normal inspection, bilateral eye PERRL ENT: moist mucus membranes Neck: supple Respiratory: lungs clear, normal breath sounds Cardiovascular #1: regular rate, rhythm Cardiovascular #2: 2+ radial (R) Gastrointestinal: normal inspection, normal bowel sounds, non tender, no mass, non-distended Musculoskeletal: gait/station normal - wide based gait, normal range of motion - with tenderness in hips. She prefers to sit. Neurologic: alert, oriented x3, motor strength/tone normal, DTRs symmetric, sensory intact, cerebellar normal, normal gait, speech normal Psychiatric: no suicidal/homicidal ideation, depressed affect - and somewhat labile - pressuring for "something strong" Skin: normal inspection, warm/dry Medical Decision Making Diagnostic Impression: Primary Impression: Exacerbation of chronic back pain Additional Impressions: Osteoarthritis Qualified Codes: M15.0 - Primary generalized (osteo)arthritis Opiate dependence Qualified Codes: F11.29 - Opioid dependence with unspecified opioid-induced disorder Hyperglycemia ER Course Patient with worsened pain in back and hips. No trauma or red flag symptoms. Need to exclude occult infection and possible electrolyte contribution. Due to history and exam, imaging of spine not indicated. Needs labs, CXR, EKG and UA. Will treat with toradol, reglan and benadryl. She stated she didn't feel any different after meds. States "toradol" will not work. Wants stronger medicine. States will not have ride - I am limited regarding treatment with opiates. Ambulatory. Delay in labs. Percocet given. Discussed elevated glucose. Some improvement. Long discussion regarding treatment of chronic pain and osteoarthritis. She was told she needs to see her MD. Also discussed creat. Patient stable for outpatient observation and treatment. Laboratory Tests Test 04/10/17 22:40 04/11/17 03:00 White Blood Count 7.9 K/UL (4.8-10.8) Red Blood Count 4.67 M/UL (4.20-5.40) Hemoglobin 13.7 G/DL (12.0-16.0) Hematocrit 41.1 % (37.0-47.0) Mean Corpuscular Volume 88 FL (80-99) Mean Corpuscular Hemoglobin 29.4 PG (27.0-31.0) Mean Corpuscular Hemoglobin Concent 33.3 G/DL (32.0-36.0) Red Cell Distribution Width 12.4 % (11.6-14.8) Platelet Count 219 K/UL (150-450) Mean Platelet Volume 6.4 FL (6.5-10.1) L Neutrophils (%) (Auto) 55.9 % (45.0-75.0) Lymphocytes (%) (Auto) 35.7 % (20.0-45.0) Monocytes (%) (Auto) 5.3 % (1.0-10.0) Eosinophils (%) (Auto) 1.6 % (0.0-3.0) Basophils (%) (Auto) 1.5 % (0.0-2.0) Erythrocyte Sedimentation Rate 9 MM/HR (0-30) Prothrombin Time 10.0 SEC (9.30-11.50) Prothrombin Time INR 1.0 (0.9-1.1) PTT 24 SEC (23-33) Sodium Level 134 mEQ/L (135-145) L Potassium Level 4.7 mEQ/L (3.4-4.9) Chloride Level 95 mEQ/L (98-107) L Carbon Dioxide Level 25 mEQ/L (20-30) Anion Gap 14 (5-15) Blood Urea Nitrogen 33 mg/dL (7-23) H Creatinine 1.2 mg/dL (0.5-0.9) H Estimate Glomerular Filtration Rate 44.4 mL/min (>60) Glucose Level 237 mg/dL (74-106) H Calcium Level 9.9 mg/dL (8.6-10.2) Total Bilirubin 1.0 mg/dL (0.0-1.2) Aspartate Amino Transferase (AST) 14 U/L (5-40) Alanine Aminotransferase (ALT) 16 U/L (3-33) Alkaline Phosphatase 97 U/L (35-104) Total Creatine Kinase 138 U/L (26-140) Troponin I < 0.30 ng/mL (<=0.30) Pro-B-Type Natriuretic Peptide 44 pg/mL (0-125) Total Protein 7.0 g/dL (6.6-8.7) Albumin 4.1 g/dL (3.5-5.2) Globulin 2.9 g/dL Albumin/Globulin Ratio 1.4 (1.0-2.7) Urine Color Yellow Urine Appearance Clear Urine pH 5 (4.5-8.0) Urine Specific [place] 1.025 (1.005-1.035) Urine Protein 2+ (NEGATIVE) H Urine Glucose (UA) 3+ (NEGATIVE) H Urine Ketones Negative (NEGATIVE) Urine Occult Blood Negative (NEGATIVE) Urine Nitrite Negative (NEGATIVE) Urine Bilirubin 2+ (NEGATIVE) H Urine Ictotest Negative Urine Urobilinogen Normal MG/DL (0.0-1.0) Urine Leukocyte Esterase 3+ (NEGATIVE) H Urine RBC 0-2 /HPF (0 - 2) Urine WBC 2-4 /HPF (0 - 2) Urine Squamous Epithelial Cells Few /LPF (NONE/OCC) Urine Bacteria Few /HPF (NONE) EKG Diagnostic Results Rate: normal Rhythm: NSR ST Segments: no acute changes - LAD RBBB Rhythm Strip Diag. Results EP Interpretation: yes Rhythm: NSR, no PVC's, no ectopy Chest X-Ray Diagnostic Results Chest X-Ray Diagnostic Results : Chest X-Ray Ordered: Yes # of Views/Limited/Complete: 1 View Indication: Other EP Interpretation: Yes Interpretation: no consolidation, no effusion, no pneumothorax Impression: No acute disease Electronically Signed by: Narinder Dorsey MD Last Vital Signs Date Time Temp Pulse Resp B/P (MAP) Pulse Ox O2 Delivery O2 Flow Rate FiO2 04/11/17 05:00 76 18 142/70 99 Room Air 04/11/17 05:00 98.1 Status: improved Disposition: HOME, SELF-CARE Condition: Improved Scripts Pregabalin* (LYRICA*) 75 Mg Capsule 75 MG ORAL THREE TIMES A DAY, #60 CAP 1 Refill Prov: Narinder Dorsey M.D. 04/11/17 Tramadol Hcl* (ULTRAM*) 50 Mg Tablet 50 MG ORAL Q6H Y for For Pain, #14 TAB 0 Refills Prov: Narinder Dorsey M.D. 04/11/17 Narinder Dorsey M.D. Apr 10, 2017 21:40
[2017-04-10 22:40] VITALS: BP 150/79
[2017-04-11 00:42] LABS: BASOPHILS % (AUTO) 1.5 % (0.0-2.0); EOSINOPHILS % (AUTO) 1.6 % (0.0-3.0); LYMPHOCYTES % (AUTO) 35.7 % (20.0-45.0); MEAN CORPUSCULAR HEMOGLOBIN 29.4 PG (27.0-31.0); MEAN CORPUSCULAR HGB CONC 33.3 G/DL (32.0-36.0); MEAN CORPUSCULAR VOLUME 88 FL (80-99); MEAN PLATELET VOLUME 6.4 FL (6.5-10.1); MONOCYTES % (AUTO) 5.3 % (1.0-10.0); NEUTROPHILS % (AUTO) 55.9 % (45.0-75.0); PLATELET COUNT 219 K/UL (150-450); RED BLOOD COUNT 4.67 M/UL (4.20-5.40); RED CELL DISTRIBUTION WIDTH 12.4 % (11.6-14.8); WHITE BLOOD COUNT 7.9 K/UL (4.8-10.8)
[2017-04-11 00:49] LABS: TROPONIN I < 0.30 ng/mL (<=0.30)
[2017-04-11 00:53] LABS: ALANINE AMINOTRANSFERASE 16 U/L (3-33); ALBUMIN/GLOBULIN RATIO 1.4 (1.0-2.7); ANION GAP 14 (5-15); ASPARTATE AMINO TRANSFERASE 14 U/L (5-40); CALCIUM 9.9 mg/dL (8.6-10.2); CARBON DIOXIDE 25 mEQ/L (20-30); CHLORIDE 95 mEQ/L (98-107); CREATININE 1.2 mg/dL (0.5-0.9); GLOMERULAR FILTRATION RATE 44.4 mL/min (>60); HEMOLYSIS 3; POTASSIUM 4.7 mEQ/L (3.4-4.9); SODIUM 134 mEQ/L (135-145)
[2017-04-11] MEDS ORDERED: oxyCODONE HCL/Acetaminophen 5/325mg ORAL ONE (01:30)
[2017-04-11 01:53] LABS: ERYTHROCYTE SEDIMENTATION RATE 9 MM/HR (0-30)
[2017-04-11 03:00] VITALS: BP 145/69
[2017-04-11 03:38] LABS: APPEARANCE,URINE CLEAR; KETONES,URINE NEGATIVE (NEGATIVE); LEUKOCYTE ESTERASE ,URINE 3+ (NEGATIVE); NITRITE,URINE NEGATIVE (NEGATIVE); PH,URINE 5 (4.5-8.0); PROTEIN,URINE 2+ (NEGATIVE); UROBILINOGEN,URINE NORMAL MG/DL (0.0-1.0)
[2017-04-11 03:50] LABS: RBC,URINE 0-2 /HPF (0 - 2); SQUAMOUS EPITHELIAL CELL,UR FEW /LPF (NONE/OCC)
[2017-04-11 03:51] LABS: BACTERIA,URINE FEW /HPF
[2017-04-11 03:53] LABS: ICTOTEST NEGATIVE
[2017-04-11] MEDS ORDERED: LYRICA75 M1 ORAL (04:29)
[2017-04-11] MEDS ORDERED: TRAMADOL HCL50 MG ORAL (04:29)
[2017-04-11 05:00] VITALS: BP 142/70
--- NOTE | 2017-04-11 11:14 | Diagnostic Imaging Report ---
Indication: Dyspnea Comparison: None A single view chest radiograph was obtained. Findings: Cardiomediastinal appearance is within normal limits for age. Pulmonary vascularity is appropriate. The diaphragmatic contour is smooth and costophrenic angles are sharp. No pleural effusions are identified. The bones are osteopenic. Impression: No acute findings
--- NOTE | 2017-04-14 16:01 | Cardiology Report ---
APPROVED REPORT EKG Measurement Heart [id number] Normal sinus rhythm Left axis deviation Right bundle branch block Abnormal ECG
== END 2017-04-11 05:00 | disposition home or self-care (01) ==
LOC: EDBD 20:42 → EMR 21:07
DX: M54.9 Dorsalgia, unspecified (principal); G89.29 Other chronic pain; F11.20 Opioid dependence, uncomplicated; E11.65 Type 2 diabetes mellitus with hyperglycemia; M19.90 Unspecified osteoarthritis, unspecified site; I10 Essential (primary) hypertension; Z88.2 Allergy status to sulfonamides
CPT/HCPCS: 36415; 71010; 80053; 81003; 82550; 83880; 84484; 85025; 85610; 85651; 85730; 93005; 96374; 96375; 99284; J1200; J1885; J2765